=== PATIENT | female | born 1960 | race Asian ===

== ENCOUNTER 2017-04-13 12:52 | Emergency (ER) | payer OTHER ==
[~2017-04-13] VITALS: Ht 157.5 cm; Wt 73.0 kg
[2017-04-13 13:00] VITALS: Ht 157.5 cm; Wt 73.0 kg
[2017-04-13] MEDS ORDERED: ASPIRIN 81 MG TAB PO STA (13:18)
[2017-04-13 13:52] LABS: BASOPHILS % 0.4 % (0.0-2.0); EOSINOPHILS # 0.2 10^3/ul (0.0-0.5); EOSINOPHILS % 2.3 % (0.0-7.0); HEMATOCRIT 44.4 % (37.0-47.0); LYMPHOCYTES # 3.4 10^3/ul (0.8-2.9); LYMPHOCYTES % 37.1 % (15.0-51.0); MEAN CORPUSCULAR HEMOGLOBIN 31.1 pg (29.0-33.0); MEAN CORPUSCULAR HGB CONC 33.8 g/dl (32.0-37.0); MEAN CORPUSCULAR VOLUME 92.1 fl (82.0-101.0); MEAN PLATELET VOLUME 10.1 fl (7.4-10.4); MONOCYTE # 0.9 10^3/ul (0.3-0.9); MONOCYTES % 9.7 % (0.0-11.0); NEUTROPHILS % 50.2 % (39.0-77.0); PLATELET COUNT 251 10^3/UL (140-415); RED BLOOD COUNT 4.82 10^6/ul (4.20-5.40); RED CELL DISTRIBUTION WIDTH 12.4 % (11.5-14.5); WHITE BLOOD COUNT 9.3 10^3/ul (4.8-10.8)
--- NOTE | 2017-04-13 14:05 | RADRPT ---
PROCEDURE: XR Chest. CLINICAL INDICATION: Chest pain TECHNIQUE: A single portable view of the chest was obtained. COMPARISON: None FINDINGS: The cardiomediastinal silhouette is within normal limits. The lungs and pleural spaces are clear. The soft tissues and osseous structures are unremarkable. IMPRESSION: No acute cardiopulmonary disease. RPTAT: HPNM Physician Eli Date Time Electronically viewed and signed by Kev Douglas Physician on 04/13/2017 14:05 /
[2017-04-13 14:16] LABS: ANION GAP 19 (8-16); BLOOD UREA NITROGEN 12 mg/dl (7-20); CALCIUM 9.6 mg/dl (8.4-10.2); CARBON DIOXIDE 27 mmol/L (21-31); CHLORIDE 104 mmol/L (97-110); CREATININE 0.65 mg/dl (0.44-1.00); GLUCOSE 91 mg/dl (70-220); POTASSIUM 4.2 mmol/L (3.5-5.1); SODIUM 146 mmol/L (135-144)
[2017-04-13 14:32] LABS: TROPONIN-I < 0.012 ng/ml (0.00-0.12)
--- NOTE | 2017-04-13 14:54 | ERD ---
ER Documentation Chief Complaint Date/Time DATE: 04/13/17 TIME: 14:54 Chief Complaint cp since sat and high bp was dc'd from other ER thu and thursday HPI 56-year-old female with a history of schizophrenia presenting with chest pressure and hypertension for 3 days. She was seen 2 days ago by her primary care doctor and she was noted to have significant hypertension. She was sent to the ER from the clinic. In the ER, she was treated for hypertension and sent home. Yesterday she continued to have some chest discomfort, so she went back to the ER. They treated her hypertension and sent her home again. Currently she denies any chest pain. She has no dizziness, vision disturbance, shortness of breath, nausea, vomiting, or diaphoresis. She is not currently taking any blood pressure medications. ROS All systems reviewed and are negative except as per history of present illness. Medications Home Meds Active Scripts Lisinopril* (Lisinopril*) 10 Mg Tablet, 10 MG PO DAILY, #30 TAB Prov:ANNE-MARIE LORENZANA MD 04/13/17 Reported Medications Bupropion Hcl* (Wellbutrin SR*) 150 Mg Tablet.sa, 150 MG PO BID, TAB.SA 04/13/17 Olanzapine* (Zyprexa*) 15 Mg Tablet, 30 MG PO QHS, #30 TAB 04/13/17 Allergies Allergies: Coded Allergies: No Known Allergy (Unverified , 04/13/17) PMhx/Soc History of Surgery: No Anesthesia Reaction: No Hx Neurological Disorder: No Hx Respiratory Disorders: No Hx Cardiac Disorders: No Hx Psychiatric Problems: Yes (Schizophrenia) Hx Miscellaneous Medical Probl: No Hx Alcohol Use: Yes Hx Substance Use: No Hx Tobacco Use: No Smoking Status: Never smoker FmHx Family History: other (Hypertension), No coronary disease, No diabetes Physical Exam Vitals Vital Signs Date Time Temp Pulse Resp B/P Pulse Ox O2 Delivery O2 Flow Rate FiO2 04/13/17 13:00 99.0 90 20 230/103 99 Physical Exam Const: Well-appearing, no apparent distress, no diaphoresis Head: Atraumatic Eyes: Normal Conjunctiva ENT: Normal External Ears, Nose and Mouth. Neck: Full range of motion..~ No meningismus. Resp: Clear to auscultation bilaterally Cardio: Regular rate and rhythm, no murmurs. 2+ distal pulses Abd: Soft, non tender, non distended. Normal bowel sounds Skin: No petechiae or rashes Back: No midline or flank tenderness Ext: No cyanosis, or edema Neur: Awake and alert and oriented 3, cranial nerves intact, strength and sensations intact in all 4 extremities Psych: Normal Mood and Affect Result Diagram: 04/13/17 1330 04/13/17 1330 Results 24 hrs Laboratory Tests Test 04/13/17 13:30 White Blood Count 9.310^3/ul Red Blood Count 4.8210^6/ul Hemoglobin 15.0g/dl Hematocrit 44.4% Mean Corpuscular Volume 92.1fl Mean Corpuscular Hemoglobin 31.1pg Mean Corpuscular Hemoglobin Concent 33.8g/dl Red Cell Distribution Width 12.4% Platelet Count 44255^3/UL Mean Platelet Volume 10.1fl Neutrophils % 50.2% Lymphocytes % 37.1% Monocytes % 9.7% Eosinophils % 2.3% Basophils % 0.4% Nucleated Red Blood Cells % 0.0/100WBC Neutrophils # (Manual) 4.610^3/ul Lymphocytes # 3.410^3/ul Monocytes # 0.910^3/ul Eosinophils # 0.210^3/ul Basophils # 0.010^3/ul Nucleated Red Blood Cells # 0.010^3/ul Sodium Level 146mmol/L Potassium Level 4.2mmol/L Chloride Level 104mmol/L Carbon Dioxide Level 27mmol/L Anion Gap 19 Blood Urea Nitrogen 12mg/dl Creatinine 0.65mg/dl Glucose Level 91mg/dl Calcium Level 9.6mg/dl Troponin I < 0.012ng/ml Current Medications Medications (Trade) Dose Ordered Sig/Barbara Route PRN Reason Start Time Stop Time Status Last Admin Dose Admin Aspirin (Aspirin) 162 mg ONCE STAT PO 04/13/17 13:18 04/13/17 13:19 DC 04/13/17 13:56 Procedures/MDM EKG: Rate/Rhythm: Normal Sinus Rhythm QRS, ST, T-waves: No changes consistent w/ acute ischemia Impression: No evidence of ischemia or arrhythmia Labs reviewed and are unremarkable Chest x-ray shows no acute abnormalities MDM The patient is presenting with chest pain and hypertension for 3 days. Her vitals here initially showed hypertension, however at bedside when I rechecked her blood pressure it was slightly elevated but improved without intervention. EKG does not show acute ischemia. The patient's heart score is 2. Given the length of her symptoms, I think one troponin is sufficient. Troponin was within normal limits. The patient was asymptomatic while here. Based on this evaluation the patient's risk of major adverse cardiac events is less than 1%. Shared decision making occurred with the patient the decision has been made to discharge the patient for outpatient evaluation functional study within 72 hours. I will prescribe her lisinopril 10 mg daily for her blood pressure until she is able to follow-up with her primary care doctor. She was instructed to arrange follow-up within the next 2 days and return to the ED for any new or worsening symptoms. Departure Diagnosis: Primary Impression: Hypertension Hypertension type: unspecified Qualified Code: I10 - Hypertension, unspecified type Additional Impression: Chest discomfort Condition: Stable EKANNE-MARIE DIXON MD Apr 13, 2017 14:54
[2017-04-13] MEDS ORDERED: LISI10TA2 PO (14:55)
[2017-04-13] MEDS ORDERED: OLAN15TA3 PO (15:08)
[2017-04-13] MEDS ORDERED: BUPR-34 PO (15:08)
[2017-04-13 15:31] VITALS: BP 159/82; PULSE 81; RESP 18; TEMP 98.8
== END 2017-04-13 15:30 | disposition home or self-care (01) ==
LOC: E/R 12:52
DX: I10 Essential (primary) hypertension (principal)
CPT/HCPCS: 36415; 71010; 80048; 84484; 85025; 93005; Z7502; Z7610